=== PATIENT | female | born 1985 | race Caucasian/White ===

== ENCOUNTER 2017-03-16 09:31 | Outpatient (CLI) | payer OTHER ==
[2017-03-16] MEDS ORDERED: Gadobenate Dimeglumine 529 MG/1 ML (20ML VIAL) ONE (13:08)
== END 2017-03-16 09:32 | disposition home or self-care (01) ==
LOC: BICMRI 09:31
PROVIDERS: ATTEND Psychiatry & Neurology Neurology
DX: R27.0 Ataxia, unspecified (principal)
CPT/HCPCS: 70553; A9579

== ENCOUNTER 2017-12-15 16:41 | Inpatient (IN) | payer OTHER ==
[2017-12-15 17:17] VITALS: BMI 28.3
[2017-12-15] MEDS ORDERED: Butorphanol Tartrate 1 MG/ML VIAL SLOW IVP PRN (18:03)
[2017-12-15] MEDS ORDERED: Ondansetron PF 4 MG/2 ML Vial IVP PRN (18:03)
[2017-12-15] MEDS ORDERED: Acetaminophen 500 MG TAB PO PRN (18:03)
[2017-12-15] MEDS ORDERED: Lidocaine 1% (PF) 30 ML VIAL SC PRN (18:03)
[2017-12-15] MEDS ORDERED: Promethazine HCl 25 MG/ML VIAL IM PRN (18:03)
--- NOTE | 2017-12-15 18:04 | PDOC.LDHP ---
Labor and Delivery H&P HPI: Patient of Dr Gomez Twins at 37 weeks (Ceph/Breech by patricia report) Was 4cm yesterday here as lives 1 hr away, here for possible contractions HPI: 32 yo W x3 at early term with irregular contractions. No LOF, states mucous dsch (bloody). Also with some cough, no fevers, no chills, no SOB. Review of Systems: complete ROS completed and as per HPI Current gestational age (weeks): 37 (1 day) Dating criteria: last menstrual period Grav: 4 Para: 3 OB History Details: x 3 Current complications: other (TWINS) Abnormal US findings: No Current medications: pre- vitamins Previous surgical history: none Allergies/Adverse Reactions: Allergies Allergy/AdvReac Type Severity Reaction Status Date / Time No Known Allergies Allergy Verified 12/15/17 17:18 Social history: none - Physical Exam Vital signs reviewed and normal: yes (One BP was 144/89 as I was talking to her) General: NAD Abdomen: gravid FHT: category 1 [place] contractions every: irreguylat every 3-6 minutes - Vaginal Exam cm dilated: 5 Effacement: 75% Station: -1 - Assessment L&D Assessment: term patient in labor (Early term, Twins, cephalic by exam...5cm ) - Plan Plan: admit to L&D, GBS antibiotic prophylaxis, informed consent obtained, anesthesia consult for pain management, other (I performed a SSE to rule out ROM , amnisure not performed due to bloody show. CX 5cm. Admit as patient lives 1 hr away. GBS pos. I have ordered a sono to confirm presentations. I have notified Patricia as her patient's arrival. SSE performed with the assistence of Devi (RN) and Dr Robles.)
[2017-12-15] MEDS ORDERED: Penicillin G Potassium 5 MILL.UNITS VIAL ONE (18:07)
--- NOTE | 2017-12-15 18:08 | PDOC.FPROB ---
FMR OB H&P: HPI - History of Present Illness Chief Complaint: contractions History of Present Illness: This is a 32 yo F, at 37.1wks by 1T US presenting with cxns every 7-8 minutes started last night and have persisted. She states she has had increasing bloody show throughout the day but denies rupture of membranes. She denies fevers, chills, sweats, dysuria, N/V/D. Has had a cough for the last few days, mild productive sputum. No shortness of breath. No leg swelling or headache. Has been feeling babies moving. OB Hx: 3 previous children were SVDs. At 32 weeks sono twin A was cephalic while twin B was breech, mother would prefer vaginal delivery if possible. 3rd child had coarctation of the aorta, patient was referred to [facility] earlier in the for evaluation. Primary Care Physician: Patricia FMR OB H&P: Current - Care : 4 Para: 3 Gestational age: 37.1 Due date: 01/04/18 Dating Criteria: 1T US - OB Labs Blood type: A RH: positive Antibody Screen: negative HIV: negative RPR: negative HepBsAg: negative Rubella: immune Urine drug screen: negative Gonorrhea: negative Chlamydia: negative 1 hour gtt: 118 FMR OB H&P: History - Past Medical History PMH: no significant PMH per patient report - OB History OB History: see hpi - Surgical History Sx History: denies surgical history - Social History Social History: no smoking, alcohol, or drugs - Family History Family History: denies family hx of defects, youngest child with coarctation of the aorta FMR OB H&P: Medications - Current Home Medications: Medication Instructions Recorded Confirmed Type Vit No.129/Iron/Folic 1 each PO DAILY 12/15/17 12/15/17 History [ Tablet] Allergies/Adverse Reactions: Allergies Allergy/AdvReac Type Severity Reaction Status Date / Time No Known Allergies Allergy Verified 12/15/17 17:18 FMR OB H&P: ROS - Review of Systems General: reports: fatigue. denies: fever/chills, night sweats ENT: reports: nasal congestion. denies: sore throat Cardiovascular: denies: chest pain, palpitation Respiratory: reports: cough. denies: congestion, shortness of breath Gastrointestinal: denies: abdominal pain, constipation Genitourinary (Female): reports: other (bloody show). denies: dysuria, hematuria Neurologic: denies: numbness, weakness Integumentary: denies: rash Psychological: denies: depression FMR OB H&P: Vital Signs - Maternal Vital signs: Vital Signs - First Documented Temp Pulse Resp BP 98.7 F 100 18 145/98 H 12/15/17 17:07 12/15/17 17:07 12/15/17 17:07 12/15/17 17:07 - Heart Tones Baseline: 130 Variability: moderate Acceleration: present Deceleration: absent Category: category 1 [place] contractions every: 5-6 min FMR OB H&P: Physical Exam - Physical Exam General: NAD, awake, alert and oriented HEENT: normocephalic and atraumatic Neck: supple Heart: RRR, normal S1/S2 General: CTAB, no respiratory distress, good air movement Abdomen: soft, gravid Musculoskeletal: normal gait and station, pulses present Neurological: cranial nerves II through XII intact, no focal deficit Skin: capillary refill <2 seconds - Pelvic Exam Deviation from normal: no fluid leak with cough or valsalva SVE: /-1 FMR OB H&P: A/P - Problem List (1) Twin gestation in third trimester Current Visit: Yes Status: Acute Code(s): O30.003 - TWIN PREG, UNSP NUM PLCNTA & AMNIO SACS, THIRD TRIMESTER (2) Active labor at term Current Visit: Yes Status: Acute Code(s): SSD8634 - Discussion: Date/Time: 12/15/171805 This H&P was discussed with Dr. Ye Plan: # Term twin gestatin in labor, 37.1 wks - /-1, in the office yesterday per patient - contractions 5-6 minutes on monitor - Category 1 strip at this time - Sterile spec exam shows no pooling or fluid leak - lives 1 hour away, will admit for labor management - may need pitocin later on should labor stall, will monitor for now - US to check positioning, largest fluid pocket - Anesthesia consulted for epidural - GBS positive, start penicillin - Dr. Gomez notified
[2017-12-15] MEDS: Lactated Ringer's 1,000 ML IV SCH (18:13)
[2017-12-15] MEDS ORDERED: Penicillin G Potassium 5 MILL.UNITS in Sodium Chloride 0.9% 100 ML IVPB SCH (18:15)
[2017-12-15 18:35] LABS: Hemoglobin 13.3 g/dL (12.0-16.0); Mean Corpuscular HGB CONC 34.6 g/dL (32.0-36.0); Mean Corpuscular Hemoglobin 31.9 pg (27.0-31.0); Mean Corpuscular Volume 92.4 fL (78.0-98.0); Mean Platelet Volume 8.8 fL (7.4-10.4); Platelet Count 142 thou/uL (130-400); RBC Distribution Width 12.1 % (11.5-14.5); Red Blood Cell (RBC) Count 4.16 mill/uL (4.20-5.40); White Blood Cell (WBC) Count 10.4 thou/uL (4.8-10.8)
[2017-12-15 19:13] LABS: Syphilis Antibody Nonreactive (Nonreactive); Syphilis Antibody Index 0.04 S/CO (<1.00 Non-Reactive)
[2017-12-15] MEDS ORDERED: Fentanyl 4 mcg/Bup 0.1% Cadd 100 ML ONE (19:15)
[2017-12-15] MEDS ORDERED: Eucerin (Mineral Oil/Petrolatum,White) 30 gm Jar TOP PRN (20:10)
[2017-12-15] MEDS ORDERED: ePHEDrine/0.9% NaCl/PF SYRINGE 50 mg/10 ml SLOW IVP PRN (20:10)
[2017-12-15] MEDS ORDERED: Naloxone HCl 0.4 mg/ml Vial IVP PRN ×2 (20:10)
[2017-12-15] MEDS ORDERED: Lactated Ringer's 500 ML IV PRN (20:10)
[2017-12-15] MEDS ORDERED: Fentanyl 4 mcg/Bupivacaine 0.1% Cassette 100 ML EPIDURAL SCH (20:15)
[2017-12-15] MEDS ORDERED: Communication Order-Pharmacy FS SCH (20:15)
[2017-12-15 20:16] LABS: HBSAg Index 0.22 S/CO (0-0.99); Hep B Surf Ag NonReactive S/CO (NonReactive)
--- NOTE | 2017-12-15 20:29 | PDOC.LDPN ---
Labor & Delivery Progress Note - Subjective Subjective: comfortable - Objective Vital signs reviewed and normal: yes General: NAD FHT: category 1 [place] contractions every: 3-4 minutes - Assessment (1) Twin gestation in third trimester Code(s): O30.003 - TWIN PREG, UNSP NUM PLCNTA & AMNIO SACS, THIRD TRIMESTER Current Visit: Yes Status: Acute (2) Active labor at term Code(s): [id number] - Current Visit: Yes Status: Acute -: # Term twin gestatin in labor, 37.1 wks - last check /-1 - contractions 3-4 minutes - Category 1 strip - Twin A vertex, Twin B Breech, fluid pockets >4cm for both - epidural placed - bp to 98/62 after epidural, responded to fluids - GBS prophylaxis
--- NOTE | 2017-12-15 20:56 | PDOC.EVN ---
Event Note - Event Note Event Note: Angelita confirms ceph/breech BPs are ok with JOSE JUAN in use
--- NOTE | 2017-12-15 21:15 | ULT ---
LIMITED TWIN OB ULTRASOUND: 12/15/17 Evaluate twins for position and amniotic fluid index. Multiple longitudinal and transverse images of twin intrauterine pregnancies obtained using multihert z curvilinear transducer. Real time and color flow and M-mode sonography is used to evaluate both twi ns. TWIN A Twin A is in the cephalic presentation. Cardiac activity measuring 152 beats per minute. The placenta is fundal. The largest pocket of fluid for twin A is 5.9 cm. TWIN B Twin B is in a breech presentation with posterior fundal placenta. Cardiac activity measures 136 beat s per minute. The largest pocket of fluid around twin B is 4.3 cm. IMPRESSION: Viable IUPs. Both twins demonstrate visible cardiac activity. POS: [facility]
[2017-12-15] MEDS: Penicillin G 2.5 MILL.units 2.5 MILL.UNITS in Premix Bag 1 BAG IVPB SCH (22:30)
--- NOTE | 2017-12-15 23:31 | PDOC.LDPN ---
Labor & Delivery Progress Note - Subjective Subjective: comfortable, loss of fluid - Objective Vital signs reviewed and normal: yes General: NAD Dilation: 6 Effacement: 75% (60) Station: -1 FHT: category 1 [place] contractions every: 2-3 minutes - Assessment (1) Twin gestation in third trimester Code(s): O30.003 - TWIN PREG, UNSP NUM PLCNTA & AMNIO SACS, THIRD TRIMESTER Current Visit: Yes Status: Acute (2) Active labor at term Code(s): [id number] - Current Visit: Yes Status: Acute -: # Term twin di/di gestation in labor, 37.1 wks - /-1, SROM at 2330 - contractions q2-3 minutes - Category 1 strip - Twin A vertex, Twin B Breech, fluid pockets >4cm for both - epidural placed - GBS prophylaxis
[2017-12-16] MEDS ORDERED: NS w/ Oxytocin 10 units 500 ML ONE (02:08)
[2017-12-16] MEDS ORDERED: Misoprostol 200 MCG TAB ONE (02:08)
[2017-12-16] MEDS ORDERED: Methylergonovine 0.2 MG/ML VIAL ONE (02:25)
[2017-12-16] MEDS ORDERED: Carboprost 250 MCG/ML AMP ONE (02:26)
[2017-12-16] MEDS: NS / Oxytocin 40 units/1000ml 1,000 ML IV PRN ×2 (02:40→03:47)
[2017-12-16 02:57] LABS: Actual Bicarbonate (HCO3a) 21.6 mEq/L (22-28); Base Excess (BEa) -3.2 mEq/L (-2.0 to +3.0)
--- NOTE | 2017-12-16 03:04 | PDOC.OPDEL ---
OB Operative/Delivery Note Delivery Dr/Surgeon: Patricia Assist: Ephraim HEATON, Travis PGY2 Pre-Delivery Diagnosis: active labor Procedure/Post Delivery Dx: spontaneous vaginal delivery (, breech extraction second twin) Weeks gestation: 37 Anesthesia: epidural - Findings A Sex: male - 1 min: 7 - 5 min: 9 B Sex: male - 1 min: 5 - 5 min: 8 - Additional Findings/Plan Placenta delivered: spontaneous Repaired Obstetrical Laceration: none Estimated blood loss: 400cc Compilations/Other Findings: after delivery of first twin, uncomplicated no dystocia, cephalic, cord clamped , vigorous and handed to awaiting mily team, ultrasound performed to note baby B in ioana breech presentation, one foot grasped and brought to vagina, second foot located with use of sono and grasped, during this FHT were 130s, second leg grasped and swept across anterior body and brought into vagina, during this SROM occurred, with maternal pushing efforts baby rotated to sacrum anterior, delivered to level of scapula, baby rotated 90 degrees and right arm delivered with sweeping motion across anterior chest followed by same maneuver to deliver left arm. head then flexed with [place] smellie veit maneuver. Cord clamped, handed to awaiting mily team. placenta delivered intact spontaneously with gentle traction, sent for final pathology, uterine tone excellent with fundal massage and pitocin IV infusing. Post delivery plan: routine recovery
[2017-12-16] MEDS ORDERED: diphenhydrAMINE 25 MG CAP PO PRN (06:11)
[2017-12-16] MEDS ORDERED: Benzocaine/Menthol 20-0.5% 60 ML CAN TOP PRN (06:11)
[2017-12-16] MEDS ORDERED: NS / Oxytocin 40 units/1000ml 1,000 ML IV SCH (06:11)
[2017-12-16] MEDS ORDERED: Promethazine HCl 25 MG/ML VIAL IM PRN (06:11)
[2017-12-16] MEDS ORDERED: Milk Of Magnesia 30 ML UDCUP PO PRN (06:11)
[2017-12-16] MEDS ORDERED: Lanolin Ointment 7 GM TUBE TOP PRN (06:11)
[2017-12-16] MEDS ORDERED: Ondansetron PF 4 MG/2 ML Vial IVP PRN (06:11)
[2017-12-16] MEDS ORDERED: Preparation H Ointment 28 GM TUBE PR PRN (06:11)
[2017-12-16] MEDS ORDERED: Bisacodyl 10 MG SUPP PR PRN (06:11)
[2017-12-16] MEDS ORDERED: Adacel (T-DAP) 0.5 ML VIAL IM ONE (06:11)
[2017-12-16] MEDS: Ibuprofen 800 MG TAB PO SCH ×3 (06:28→21:13)
[2017-12-16] MEDS: Ferrous Sulfate 325 MG TAB PO SCH ×2 (06:57→14:45)
[2017-12-16] MEDS: Penicillin G 2.5 MILL.units 2.5 MILL.UNITS in Premix Bag 1 BAG IVPB SCH (06:57)
[2017-12-16] MEDS: Lactated Ringer's 1,000 ML IV SCH (06:57)
[2017-12-16] MEDS: HYDROcodone/Acetaminophen 5/325 mg Tablet PO PRN ×3 (08:23→19:59)
[2017-12-16] MEDS: Prenatal Vitamin 1 TAB PO SCH (08:23)
[2017-12-16] MEDS: Docusate Calcium (SURFAK) 240 MG CAP PO SCH ×2 (08:23→21:13)
[2017-12-16] MEDS ORDERED: Bupivacaine/Epinephrine 0.25% 30 ML VIAL ONE (15:00)
[2017-12-17] MEDS: HYDROcodone/Acetaminophen 5/325 mg Tablet PO PRN ×5 (01:04→22:08)
[2017-12-17] MEDS: Ibuprofen 800 MG TAB PO SCH ×3 (06:20→21:40)
--- NOTE | 2017-12-17 06:39 | PDOC.PP ---
Post Progress Note Post Day #: 1 PO intake tolerated: yes Flatus: yes Ambulation: yes Vital Signs (12 hours) Temp Pulse Resp BP Pulse Ox 12/17/17 01:04 CDT 98.0 F 68 18 132/65 12/16/17 19:56 98.2 F 63 18 130/60 100 Weight Weight 165 lb - Physical Examination General: NAD Cardiovascular: no m/r/g, RRR Respiratory: clear to auscultation bilaterally, non-labored breathing Abdominal: + bowel sounds, lochia Extremities: negative homans (B) Neurological: no gross focal deficits Psychiatric: A&Ox3, normal affect Result Diagrams: 12/15/17 18:27 Additional Labs: Post Labs Blood Type A POSITIVE 12/15/17 18:27 Hep Bs Antigen NonReactive S/CO (NonReactive) 12/15/17 18:27 - Assessment/Plan doing well home on 12/18
[2017-12-17] MEDS: Ferrous Sulfate 325 MG TAB PO SCH ×2 (07:16→17:39)
[2017-12-17] MEDS: Prenatal Vitamin 1 TAB PO SCH (09:14)
[2017-12-17] MEDS: Docusate Calcium (SURFAK) 240 MG CAP PO SCH ×2 (09:15→21:40)
[2017-12-18] MEDS: HYDROcodone/Acetaminophen 5/325 mg Tablet PO PRN (04:03)
[2017-12-18] MEDS: Ibuprofen 800 MG TAB PO SCH (06:12)
--- NOTE | 2017-12-18 08:08 | PDOC.PP ---
Post Progress Note Post Day #: 2 PO intake tolerated: yes Flatus: yes Ambulation: yes Weight Weight 165 lb - Physical Examination General: NAD Cardiovascular: RRR Respiratory: non-labored breathing Abdominal: no distention, appropriately TTP Skin: no rash Neurological: no gross focal deficits Psychiatric: normal affect Result Diagrams: 12/15/17 18:27 Additional Labs: Post Labs Blood Type A POSITIVE 12/15/17 18:27 Hep Bs Antigen NonReactive S/CO (NonReactive) 12/15/17 18:27 - Assessment/Plan PPD2 s/p TSVD of jaime twins with breech extraction second twin VSSAF Doing well, lochia wnl, pain controlled on Ibuprofen Rh pos RImm DC home FU 6 wk
[2017-12-18 08:18] VITALS: BP 134/75; TEMP 97.8
[2017-12-18] MEDS: Ferrous Sulfate 325 MG TAB PO SCH (09:19)
[2017-12-18] MEDS: Docusate Calcium (SURFAK) 240 MG CAP PO SCH (09:20)
[2017-12-18] MEDS: Prenatal Vitamin 1 TAB PO SCH (09:20)
== END 2017-12-18 11:50 | disposition home or self-care (01) | DRG 807 ==
LOC: L&D/OP 16:41 → L&D 12-16 02:46 → 3SW 12-16 06:03
PROVIDERS: ADMIT Student in an Organized Health Care Education/Training Program; ATTEND Student in an Organized Health Care Education/Training Program
PROC: 10E0XZZ Delivery of Products of Conception, External Approach (ICD-10-PCS; principal; 2017-12-16)
DX: O99.824 Streptococcus B carrier state complicating childbirth (principal); Z37.0 Single live birth; O32.1XX2 Maternal care for breech presentation, fetus 2; Z3A.37 37 weeks gestation of pregnancy; O30.003 Twin pregnancy, unspecified number of placenta and unspecified number of amniotic sacs, third trimester
CPT/HCPCS: 36415; 51702; 76815; 82805; 85027; 86780; 86850; 86900; 86901; 87340; 88307; 99285; J2210; J2405; J2540; J3490

== ENCOUNTER 2019-01-03 07:19 | Outpatient (CLI) | payer OTHER ==
[2019-01-03 11:35] LABS: #Basophils 0.1 thou/uL (0.0-0.2); #Eosinphils 0.3 thou/uL (0.0-0.7); #Lymphocytes 1.9 thou/uL (1.20-3.40); #Monocytes 0.4 thou/uL (0.11-0.59); #Neutrophils 3.5 thou/uL (1.40-6.50); %Basophils 0.9 % (0.0-1.0); %Eosinophils 4.2 % (0.0-10.0); %Lymphocytes 31.4 % (21.0-51.0); %Monocytes 6.4 % (0.0-10.0); %Neutrophils 57.1 % (42.0-75.0); Hemoglobin 13.4 g/dL (12.0-16.0); Mean Corpuscular HGB CONC 33.4 g/dL (32.0-36.0); Mean Corpuscular Hemoglobin 30.7 pg (27.0-31.0); Mean Corpuscular Volume 91.9 fL (78.0-98.0); Platelet Count 269 thou/uL (130-400); Red Blood Cell (RBC) Count 4.37 mill/uL (4.20-5.40); White Blood Cell (WBC) Count 6.1 thou/uL (4.8-10.8)
[2019-01-03 11:53] LABS: BHCG - Serum Negative (NEGATIVE); Pregs Control Background? CLEAR/WHITE (CLR/WHITE); Pregs Control Bar Appear? YES (CONTROL BAR)
== END 2019-01-03 07:20 | disposition home or self-care (01) ==
LOC: LABBT 07:19
PROVIDERS: ATTEND Orthopaedic Surgery
DX: Z01.812 Encounter for preprocedural laboratory examination (principal); S83.207A Unspecified tear of unspecified meniscus, current injury, left knee, initial encounter
CPT/HCPCS: 84703; 85025

== ENCOUNTER 2019-01-04 05:48 | Day surgery (SDC) | payer OTHER ==
[2019-01-03 10:27] VITALS: BMI 22.3
[2019-01-04] MEDS ORDERED: PROPOFOL 20 ML ONE (06:22)
[2019-01-04] MEDS ORDERED: Scopolamine 1.5 mg/72 hour Patch ONE (06:43)
[2019-01-04] MEDS ORDERED: HYDROcodone/Acetaminophen 5/325 mg Tablet ONE (10:02)
[2019-01-04] MEDS ORDERED: Lidocaine 1% PF 5 ML VIAL ONE (10:14)
[2019-01-04] MEDS ORDERED: Ketorolac Tromethamine 30 MG/ML VIAL ONE (10:14)
[2019-01-04] MEDS ORDERED: PROPOFOL 200 MG/20 ML VIAL ONE (10:14)
[2019-01-04] MEDS ORDERED: Lidocaine 2% w/Epinephrine 1:200K 20 ML VIAL ONE (10:14)
[2019-01-04] MEDS ORDERED: Ondansetron PF 4 MG/2 ML Vial ONE (10:14)
[2019-01-04] MEDS ORDERED: Bupivacaine HCl 0.5%/Epinephrine 1:200,000/PF 30 ml Vial ONE (10:14)
--- NOTE | 2019-01-04 14:13 | OP ---
DATE OF PROCEDURE: 01/04/2019 PREOPERATIVE DIAGNOSIS: Tear of the medial meniscus, posterior horn. POSTOPERATIVE DIAGNOSES: 1. Intact medial meniscus. 2. Grade 3 chondromalacia, superior medial facet of the patella. PROCEDURE PERFORMED: Left knee arthroscopy with debridement and shaving of unstable chondral flaps. MIGRATORY GAME BIRD BIOLOGIST: None. ESTIMATED BLOOD LOSS: There was minimal blood loss. ANESTHESIA: She had a general as well as a local knee block. DISPOSITION: She went to Day Stay in stable condition. INDICATIONS: This is a 33-year-old female, who for months has been having pain on the inside part of left knee. She has problems with squatting and rotation and got an MRI, which showed that she had a tear of the medial meniscus. At this time, she has opted to have surgery. DESCRIPTION OF PROCEDURE: After all appropriate consent forms were explained and signed, she was taken back to the operative room and at this time was given general anesthetic. Once the level of anesthesia was appropriate, a tourniquet was placed on her left thigh and the leg was placed in the arthroscopic leg bates. The limb was then prepped and draped in standard surgical fashion. The limb was exsanguinated and the tourniquet was taken to 250 mmHg. Inferolateral portal was established. Scope was placed into the knee joint. A needle localization technique was then used to make a medial working portal. Diagnostic arthroscopy commenced in the notch. The ACL and PCL were probed and found to be intact. The medial compartment was thoroughly evaluated including the femur and the tibia, which were found to be normal. The anterior horn of meniscus and the body of meniscus were normal. The posterior horn of meniscus was probed on its complete superior and inferior surface, was found to be normal. We then placed the camera into the medial portal and went between the medial femoral condyle and the PCL, looking at the back of the medial meniscus and that was found to be normal. We went to the medial gutter and looked around at the capsular insertion of the meniscus and this was found to be normal and thus we felt that this was a false positive reading on the MRI scan. We then placed the camera back into the lateral portal. We then went into the lateral compartment. The lateral femoral condyle, lateral tibial plateau, and lateral meniscus were all probed and found to be intact. The lateral gutter was found to be clean of any abnormality or loose body. The patellofemoral joint was then evaluated. The trochlea was in good condition. There was a small grade 3 chondral lesion of the superior medial facet of the patella. The unstable chondral flap was debrided with a shaver. There was no exposed bone. We then went through the knee one more time looking for any loose pieces, there were none. Therefore, the scope was removed. The knee was drained and portals were closed with simple nylon stitch. Bulky sterile dressing was then applied. Tourniquet was let down. Toes pinked up nicely. The patient was then awakened and taken to the recovery room in stable condition. All counts were correct at the end of the case and she did receive preoperative IV antibiotics. Job ID: [id number]
== END 2019-01-04 10:25 | disposition home or self-care (01) ==
LOC: SDC 05:48
PROVIDERS: ATTEND Orthopaedic Surgery
PROC: 0SBD4ZZ Excision of Left Knee Joint, Percutaneous Endoscopic Approach (ICD-10-PCS; principal; 2019-01-04)
DX: M22.42 Chondromalacia patellae, left knee (principal); M23.92 Unspecified internal derangement of left knee
CPT/HCPCS: J0670; J0690; J1885; J2001; J2405; J2704